=== PATIENT | female | born 1990 | race Caucasian/White ===

== ENCOUNTER 2017-02-28 22:13 | Emergency (ER) | payer BC, OTHER ==
[~2017-02-28] VITALS: Ht 172.7 cm; Wt 78.1 kg
[~2017-02-28 22:13] MED LIST: BCPILLS PO
[2017-02-28 22:15] VITALS: TEMP 36.8; Ht 172.7 cm; Wt 78.1 kg
[2017-02-28] MEDS ORDERED: LORAZEPAM 1 MG TAB SL STA (22:23)
[2017-02-28] MEDS ORDERED: ATV/1 PO (22:37)
--- NOTE | 2017-02-28 22:50 | EMERGENCY ROOM VISIT NOTE ---
History Report prepared by Sylvain: Desire Benítez Under the Supervision of: Dr. Renan Bolanos M.D. First contact with patient: 22:18 Chief Complaint: ANXIETY Stated Complaint: ANXIETY ATTACH History of Present Illness The patient is a 26 year old female who presents to the Emergency Room with complaints of a an anxiety attack about 30 minutes FRIT BURNER. The patient states that she was on her way home from [facility] after having dinner with her boyfriend and started to have an anxiety attack. The patient states that she got shaking and was having some chest tightness and shortness of breath. The patient states that she has had only one bad anxiety attack before today and this was the second time she was having an attack in which she was unable to calm herself down. The patient states that she is prescribed Ativan which she takes at night to help her sleep because she has anxiety and racing thoughts at night that keep her from sleeping. She was not specifically told to take her Ativan while actively having anxiety attacks. The patient denies suicidal ideation or any chance of . The patient denies any history of kidney disease, liver problems, heart problems. Source of History: patient Onset: 30 minutes FRIT BURNER Position: other (global) Timing: other (episode) Associated Symptoms: + chest pain (tightness), + SOB Note: Assocaited symptoms: shakiness. Review of Systems See HPI for pertinent positives & negatives. A total of 10 systems reviewed and were otherwise negative. Past Medical & Surgical Medical Problems: (1) Pneumonia Family History Cancer FH: heart disease Hypertension Social History Smoking Status: Never Smoker Marital Status: single Housing Status: lives with significant other Current/Historical Medications Scheduled PRN Lorazepam (Ativan), Unknown Dose PO UD PRN for Anxiety Allergies Coded Allergies: Penicillins (Unverified Allergy, Unknown, CHILDHOOD ALLERGY, 02/28/17) Physical Exam Vital Signs Date Time Temp Pulse Resp B/P (MAP) Pulse Ox O2 Delivery O2 Flow Rate FiO2 02/28/17 23:27 88 18 117/67 98 Room Air 02/28/17 22:15 36.8 112 18 129/74 98 Room Air Physical Exam GENERAL: Patient is in no acute distress. HEENT: No acute trauma, normocephalic atraumatic, mucous membranes moist, no nasal congestion, no scleral icterus. NECK: No stridor, no adenopathy, no meningismus, trachea is midline. LUNGS: Clear to auscultation bilaterally, no wheeze, no rhonchi, breath sounds equal. HEART: Mildly tachycardia with a regular rhythm, no murmurs. ABDOMEN: Soft, nontender, bowel sounds positive, no hernias, no peritonitis. EXTREMITIES: No cyanosis or edema, full range of motion of all the joints without pain or difficulty, no signs for acute trauma. NEUROLOGIC: Oriented x 3, no acute motor or sensory deficits, no focal weakness. SKIN: No rash, no jaundice, no diaphoresis. PSYCH: Cooperative, voluntary, slightly anxious, denies being suicidal. . Medical Decision & Procedures Medications Administered Medications (Trade) Dose Ordered Sig/Kate Route Start Time Stop Time Status Last Admin Dose Admin Lorazepam (Ativan Tab) 1 mg NOW STAT SL 02/28/17 22:23 02/28/17 22:25 DC 02/28/17 22:34 1 MG ECG Indication: other (anxiety with chest tightness) Rate (beats per minute): 107 Rhythm: sinus tachycardia Findings: RBBB (incomplete), no acute ischemic change, no ectopy ED Course 2220: The patient was evaluated in room B10. A complete history and physical exam was performed. 2223: Ordered Lorazepam 1 mg SL. 2326: I reevaluated the patient. Discussed results and discharge instructions: She verbalized understanding and agreement. The patient is ready for discharge. Medical Decision The patient is a 26 year old female who presents to the ED with complaints of anxiety. Differential diagnoses considered include anxiety or panic, dysrhythmia, suicidal ideation, pneumonia, AR, and pneumothorax The patient presents with a described anxiety attack. She has had issues like this in the past. On exam, she was mildly tachycardic, there were no concerning findings by exam. EKG showed a mild sinus tachycardia, no dysrhythmia, no acute ischemia. She denied being homicidal or suicidal. The patient was given Ativan sublingual, she feels improved. She is being discharged to follow with her doctors office. She was advised to use Ativan as needed for severe anxiety attacks. She was advised to return here for any suicidal ideation or worsening symptoms. Medication Reconciliation: I attest that I have personally reviewed the patient' s current medication list. Blood Pressure Screening: Patient was found to have normal blood pressure on screening and does not require follow-up. Impression Primary Impression: Acute anxiety Scribe Attestation The scribe's documentation has been prepared under my direction and personally reviewed by me in its entirety. I confirm that the note above accurately reflects all work, treatment, procedures, and medical decision making performed by me. Departure Information Dispostion Home / Self-Care Referrals No Doctor, Assigned (PCP) Forms HOME CARE DOCUMENTATION FORM, IMPORTANT VISIT INFORMATION Patient Instructions My [facility] Additional Instructions may use an ativan for an acute anxiety attack ECG today was ok return if worsening or feel suicidal talk with your doctor tomorrow about your anxiety
[2017-02-28 23:27] VITALS: BP 117/67; PULSE 88; O2SAT 98
== END 2017-02-28 23:33 | disposition home or self-care (01) ==
LOC: C.EDB 22:14
DX: F41.9 Anxiety disorder, unspecified (principal); Z87.01 Personal history of pneumonia (recurrent); Z80.9 Family history of malignant neoplasm, unspecified; Z82.49 Family history of ischemic heart disease and other diseases of the circulatory system

== ENCOUNTER 2018-04-25 14:56 | Emergency (ER) | payer BC ==
[~2018-04-25] VITALS: Ht 170.2 cm; Wt 80.3 kg
[~2018-04-25 14:56] MED LIST changes: +ATV/1 PO; -BCPILLS PO
[2018-04-25 14:58] VITALS: TEMP 37; Ht 170.2 cm; Wt 80.3 kg
[2018-04-25] MEDS ORDERED: MoRPHine SULFATE 4 MG/ML 1 ML CARP\\VIAL IV STA (15:18)
--- NOTE | 2018-04-25 15:30 | EMERGENCY ROOM VISIT NOTE ---
History Report prepared by Sylvain: Khalif West Under the Supervision of: Dr. Tawny Elena D.O. First contact with patient: 15:03 Chief Complaint: PELVIC PAIN Stated Complaint: LOWER PELVIC PAIN History of Present Illness The patient is a 27 year old female who presents to the Emergency Room with complaints of pelvic pain in the middle of her stomach. She says that the pain has been dull over the past few days, but became worse this morning. She describes the pain as constant cramping and pulsating, and she reports feeling nauseous. The patient says the pain waxes and wanes, however, her baseline is cramping pain. She states that the pain gets worse with movement and intercourse. She denies any change in cycle, change in bowel movements, melena, or fever or chills. No abnormal vaginal discharge or bleeding. No nausea or vomiting. The patient does report that she had issues similar to this before, however, she was on [place] and her doctors attributed her symptoms to that and changed her medication, and she has been fine since then. She has a family history of endometriosis. No other trauma or change in activity. Source of History: patient Onset: a few days ago Position: abdomen (lower pelvic) Quality: cramping Timing: constant, waxes/wanes Modifying Factors (Worsening): movement, other (intercourse) Associated Symptoms: + nausea, No fevers, No chills, No vomiting, No melena , No hematochezia Review of Systems See HPI for pertinent positives & negatives. A total of 10 systems reviewed and were otherwise negative. Past Medical & Surgical Medical Problems: (1) Pneumonia Family History Cancer FH: heart disease Hypertension Social History Smoking Status: Never Smoker Marital Status: single Housing Status: lives with significant other Current/Historical Medications Scheduled Control Pills ( Control Pills), 1 TAB PO DAILY Scheduled PRN Lorazepam (Ativan), Unknown Dose PO UD PRN for Anxiety Allergies Coded Allergies: Penicillins (Unverified Allergy, Unknown, CHILDHOOD ALLERGY, 04/25/18) Physical Exam Vital Signs Date Time Temp Pulse Resp B/P (MAP) Pulse Ox O2 Delivery O2 Flow Rate FiO2 04/25/18 17:45 66 16 111/59 99 Room Air 04/25/18 16:33 83 16 105/69 98 Room Air 04/25/18 14:58 37.0 95 18 123/82 99 Physical Exam GENERAL: alert, well appearing, well nourished, no distress, non-toxic EYE EXAM: normal conjunctiva, PERRL and EOM's grossly intact OROPHARYNX: no exudate, no erythema, lips, buccal mucosa, and tongue normal and mucous membranes are moist NECK: supple, no nuchal rigidity, no adenopathy, non-tender LUNGS: Clear to auscultation. Normal chest wall mechanics HEART: no murmurs, S1 normal and S2 normal ABDOMEN: abdomen soft, with suprapubic and LLQ tenderness, normo-active bowel sounds, no masses, no rebound or guarding. BACK: Back is symmetrical on inspection and there is no deformity, no midline tenderness, no CVA tenderness. SKIN: no rashes and no bruising UPPER EXTREMITIES: upper extremities are grossly normal. LOWER EXTREMITIES: No pitting edema. NEURO EXAM: Normal sensorium, cranial nerves II-XII grossly intact, normal speech, no gross weakness of arms, no gross weakness of legs. Medical Decision & Procedures ER Provider Diagnostic Interpretation: Radiology results have been interpreted by the radiologist and reviewed by me. PELVIC ULTRASOUND, TRANSABDOMINAL AND TRANSVAGINAL HISTORY: suprapubic and b/l lower quadrant pain COMPARISON: Pelvic ultrasound 10/24/2013. FINDINGS: Uterus: 8.1 x 3.6 x 4.6 cm. No uterine masses. Endometrial stripe: 5 mm in thickness. Right ovary: 4.7 x 4.2 x 3.2 cm. Normal color flow within the right ovary. There is a thick-walled 3.9 cm cyst within the right ovary with septations and internal echoes. This favors a hemorrhagic cyst. Small amount of complex fluid adjacent to the right ovary. Left ovary: Normal in size and demonstrates normal color flow. Miscellaneous:Trace pelvic free fluid. IMPRESSION: 1. A 3.9 cm thick-walled complex cyst within the right ovary. This favors a hemorrhagic cyst. There is a small amount of complex fluid adjacent to the right ovary. Follow-up pelvic ultrasound in 6-8 weeks is recommended to ensure resolution. 2. Normal uterus and left ovary. 3. Trace pelvic free fluid Electronically signed by: Parminder White M.D. 04/25/2018 5:05 PM Dictated Date/Time: 04/25/2018 5:03 PM Laboratory Results 04/25/18 15:30 Red Blood Count 4.33, Mean Corpuscular Volume 92.4, Mean Corpuscular Hemoglobin 32.1, Mean Corpuscular Hemoglobin Concent 34.8, Mean Platelet Volume 9.2, Neutrophils (%) (Auto) 72.3, Lymphocytes (%) (Auto) 20.4, Monocytes (%) (Auto) 5.9, Eosinophils (%) (Auto) 0.9, Basophils (%) (Auto) 0.2, Neutrophils # (Auto) 6.92, Lymphocytes # (Auto) 1.95, Monocytes # (Auto) 0.57, Eosinophils # (Auto) 0.09, Basophils # (Auto) 0.02 04/25/18 15:30 Test 04/25/18 15:30 04/25/18 15:50 White Blood Count 9.58 K/uL (4.8-10.8) Red Blood Count 4.33 M/uL (4.2-5.4) Hemoglobin 13.9 g/dL (12.0-16.0) Hematocrit 40.0 % (37-47) Mean Corpuscular Volume 92.4 fL (80-100) Mean Corpuscular Hemoglobin 32.1 pg (25-34) Mean Corpuscular Hemoglobin Concent 34.8 g/dl (32-36) Platelet Count 217 K/uL (130-400) Mean Platelet Volume 9.2 fL (7.4-10.4) Neutrophils (%) (Auto) 72.3 % Lymphocytes (%) (Auto) 20.4 % Monocytes (%) (Auto) 5.9 % Eosinophils (%) (Auto) 0.9 % Basophils (%) (Auto) 0.2 % Neutrophils # (Auto) 6.92 K/uL (1.4-6.5) Lymphocytes # (Auto) 1.95 K/uL (1.2-3.4) Monocytes # (Auto) 0.57 K/uL (0.11-0.59) Eosinophils # (Auto) 0.09 K/uL (0-0.5) Basophils # (Auto) 0.02 K/uL (0-0.2) RDW Standard Deviation 42.2 fL (36.4-46.3) RDW Coefficient of Variation 12.5 % (11.5-14.5) Immature Granulocyte % (Auto) 0.3 % Immature Granulocyte # (Auto) 0.03 K/uL (0.00-0.02) Anion Gap 8.0 mmol/L (3-11) Est Creatinine Clear Calc Drug Dose 152.4 ml/min Estimated GFR () 145.0 Estimated GFR (Non- 125.1 BUN/Creatinine Ratio 16.2 (10-20) Calcium Level 8.8 mg/dl (8.5-10.1) Total Bilirubin 0.5 mg/dl (0.2-1) Aspartate Amino Transf (AST/SGOT) 12 U/L (15-37) Alanine Aminotransferase (ALT/SGPT) 19 U/L (12-78) Alkaline Phosphatase 30 U/L (45-117) Total Protein 7.2 gm/dl (6.4-8.2) Albumin 3.7 gm/dl (3.4-5.0) Globulin 3.5 gm/dl (2.5-4.0) Albumin/Globulin Ratio 1.1 (0.9-2) Thyroid Stimulating Hormone (TSH) 0.477 uIu/ml (0.300-4.500) Human Chorionic Gonadotropin, Qual NEG (NEG) Urine Color YELLOW Urine Appearance CLEAR (CLEAR) Urine pH 7.5 (4.5-7.5) Urine Specific Ethan 1.015 (1.000-1.030) Urine Protein NEG (NEG) Urine Glucose (UA) NEG (NEG) Urine Ketones NEG (NEG) Urine Occult Blood NEG (NEG) Urine Nitrite NEG (NEG) Urine Bilirubin NEG (NEG) Urine Urobilinogen NEG (NEG) Urine Leukocyte Esterase TRACE (NEG) Urine WBC (Auto) 10-30 /hpf (0-5) Urine RBC (Auto) 0-4 /hpf (0-4) Urine Hyaline Casts (Auto) 0 /lpf (0-5) Urine Epithelial Cells (Auto) 10-20 /lpf (0-5) Urine Bacteria (Auto) NEG (NEG) Laboratory results per my review. Medications Administered Medications (Trade) Dose Ordered Sig/Kate Route Start Time Stop Time Status Last Admin Dose Admin Morphine Sulfate (MoRPHine SULFATE INJ) 4 mg NOW STAT IV 04/25/18 15:18 04/25/18 15:20 DC 04/25/18 15:59 4 MG Ketorolac Tromethamine (Toradol Inj) 30 mg NOW STAT IV 04/25/18 17:39 04/25/18 17:40 DC 04/25/18 17:50 30 MG ED Course 1509: : The patient was evaluated in room B11B. A complete history and physical exam was performed. 1518: Ordered Morphine Sulfate 4 mg IV. 1739: Ordered Toradol 30 mg IV. 1742: Upon reevaluation, the patient is feeling better. I discussed the findings and the treatment plan with the patient. She verbalizes agreement and understanding. The patient was discharged home. Medical Decision Differential diagnosis: Etiologies such as appendicitis, diverticulitis, PUD, biliary pathology, UTI, pancreatitis, obstruction, mesenteric ischemia, aortic pathology, infections, inflammatory bowel disease, renal colic, as well as others were entertained. Pt well appearing here. No sx suggestive of PID/STI/TOA. I do not suspect torsion. Patient's pain likely secondary to the cyst noted on ultrasound. Labs otherwise reassuring. I do not suspect appendicitis, diverticulitis, bowel obstruction, mesenteric ischemia, pyelonephritis, obstructive uropathy, UTI. Patient's urine suboptimal, however no symptoms. Discussed with patient close follow-up with her [employer], need for repeat ultrasound, symptoms to watch and return for, she verbalized understanding was agreeable with plan. Medication Reconcilliation Current Medication List: was personally reviewed by me Blood Pressure Screening Patient's blood pressure: Normal blood pressure Impression Primary Impression: Ovarian cyst Additional Impression: Pelvic pain Scribe Attestation The scribe's documentation has been prepared under my direction and personally reviewed by me in its entirety. I confirm that the note above accurately reflects all work, treatment, procedures, and medical decision making performed by me. Departure Information Dispostion Home / Self-Care Referrals No Doctor, Assigned (PCP) Patient Instructions My [facility] Additional Instructions Please follow-up with your [employer] your family doctor. You will need a follow- up ultrasound in 6-8 weeks. You may use Tylenol and ibuprofen as needed for pain. Please refrain from any strenuous activity or heavy lifting, refrain from intercourse until otherwise seen and evaluated. If you develop worsening pain, abnormal discharge or bleeding, nausea vomiting, fevers or chills, or of any other please return the emergency room. Problem Qualifiers Primary Impression: Ovarian cyst Laterality: right Qualified Codes: N83.201 - Unspecified ovarian cyst, right side
[2018-04-25 15:41] LABS: BASO % 0.2 %; BASO ABS # 0.02 K/uL (0-0.2); EOS % 0.9 %; EOS ABS # 0.09 K/uL (0-0.5); HEMOGLOBIN 13.9 g/dL (12.0-16.0); IG# 0.03 K/uL (0.00-0.02); LYMPH % 20.4 %; LYMPH ABS # 1.95 K/uL (1.2-3.4); MEAN CELL VOLUME 92.4 fL (80-100); MEAN CORPUSCULAR HEMOGLOBIN 32.1 pg (25-34); MEAN CORPUSCULAR HGB CONC 34.8 g/dl (32-36); MEAN PLATELET VOLUME 9.2 fL (7.4-10.4); MONO % 5.9 %; MONO ABS # 0.57 K/uL (0.11-0.59); NEUT % 72.3 %; NEUT ABS # 6.92 K/uL (1.4-6.5); PLATELET COUNT 217 K/uL (130-400); RED CELL DISTRIBUTION WIDTH CV 12.5 % (11.5-14.5); RED CELL DISTRIBUTION WIDTH SD 42.2 fL (36.4-46.3); WHITE BLOOD COUNT 9.58 K/uL (4.8-10.8)
[2018-04-25] MEDS ORDERED: BCPILLS PO (15:42)
[2018-04-25 16:11] LABS: ALBUMIN 3.7 gm/dl (3.4-5.0); CALCIUM 8.8 mg/dl (8.5-10.1); CREATININE 0.61 mg/dl (0.60-1.20); POTASSIUM 3.7 mmol/L (3.5-5.1); TOTAL PROTEIN 7.2 gm/dl (6.4-8.2)
--- NOTE | 2018-04-25 17:07 | DIAGNOSTIC IMAGING REPORT ---
PELVIC ULTRASOUND, TRANSABDOMINAL AND TRANSVAGINAL HISTORY: suprapubic and b/l lower quadrant pain COMPARISON: Pelvic ultrasound 10/24/2013. FINDINGS: Uterus: 8.1 x 3.6 x 4.6 cm. No uterine masses. Endometrial stripe: 5 mm in thickness. Right ovary: 4.7 x 4.2 x 3.2 cm. Normal color flow within the right ovary. There is a thick-walled 3.9 cm cyst within the right ovary with septations and internal echoes. This favors a hemorrhagic cyst. Small amount of complex fluid adjacent to the right ovary. Left ovary: Normal in size and demonstrates normal color flow. Miscellaneous:Trace pelvic free fluid. IMPRESSION: 1. A 3.9 cm thick-walled complex cyst within the right ovary. This favors a hemorrhagic cyst. There is a small amount of complex fluid adjacent to the right ovary. Follow-up pelvic ultrasound in 6-8 weeks is recommended to ensure resolution. 2. Normal uterus and left ovary. 3. Trace pelvic free fluid Electronically signed by: Parminder White M.D. 04/25/2018 5:05 PM Dictated Date/Time: 04/25/2018 5:03 PM
[2018-04-25] MEDS ORDERED: KETOROLAC TROMETHAMINE 30 MG/ML VIAL IV STA (17:39)
[2018-04-25 17:45] VITALS: BP 111/59; PULSE 66; O2SAT 99
== END 2018-04-25 18:05 | disposition home or self-care (01) ==
LOC: C.EDB 14:57
DX: N83.201 Unspecified ovarian cyst, right side (principal); R10.2 Pelvic and perineal pain; Z79.3 Long term (current) use of hormonal contraceptives